=== PATIENT | female | born 1925 | race Caucasian/White ===

== ENCOUNTER 2017-06-20 13:55 | Emergency (ER) | payer OTHER ==
[~2017-06-20] VITALS: Ht 147.3 cm; Wt 50.3 kg
[2017-06-20 14:12] VITALS: BP 126/68
--- NOTE | 2017-06-20 17:15 | NUR ---
PT PRESENTS TO ER W/C/O WEAKNESS X 2DAYS. HX HTN, DM, DEMENTIA, ANXIETY. DENIES N/V/D; SKIN IS PINK/WARM/DRY; AAOX4 WITH EVEN AND UNSTEADY GAIT; LUNGS CLEAR BL; HR EVEN AND REGULAR; PT DENIES ANY FEVER, CP, SOB, OR COUGH AT THIS TIME; PATIENT STATES PAIN OF 0/10 AT THIS TIME; PATIENT POSITIONED FOR COMFORT; HOB ELEVATED; BEDRAILS UP X2; BED DOWN. ER MADE AWARE OF PT STATUS. Addendum: 06/20/17 at 1748 by [email or web address] AMB WITH WALKER.
--- NOTE | 2017-06-20 17:41 | NUR ---
Patient being evaluated by DR VALVERDE at bedside.
[2017-06-20 18:02] VITALS: BP 168/82
--- NOTE | 2017-06-20 18:02 | NUR ---
Patient discharged with BP 168/82; DENIES HEADACHE OR DIZINESS AT THIS TIME; MADE AWARE. Written and verbal after care instructions given and explained. Patient alert, oriented and verbalized understanding of instructions. AMB WITH WALKER. All questions addressed prior to discharge. ID band removed. Patient advised to follow up with PMD. Rx of CIPRO & MIRALAX given. Patient educated on indication of medication including possible reaction and side effects. Opportunity to ask questions provided and answered.
--- NOTE | 2017-06-20 18:02 | NUR ---
Note undone in EDM - 06/20/17 at 1810 by [email or web address] Patient discharged with v/s stable. Written and verbal after care instructions given and explained. Patient alert, oriented and verbalized understanding of instructions. AMB WITH WALKER. All questions addressed prior to discharge. ID band removed. Patient advised to follow up with PMD. Rx of CIPRO & MIRALAX given. Patient educated on indication of medication including possible reaction and side effects. Opportunity to ask questions provided and answered.
== END 2017-06-20 18:02 | disposition home or self-care (01) ==
LOC: MED 13:55
DX: N39.0 Urinary tract infection, site not specified (principal); K59.00 Constipation, unspecified; Z88.0 Allergy status to penicillin; I10 Essential (primary) hypertension; F17.200 Nicotine dependence, unspecified, uncomplicated
CPT/HCPCS: 81002; 99283